=== PATIENT | male | born 1960 | race Caucasian/White ===

== ENCOUNTER 2016-11-07 09:38 | Emergency (ER) | payer OTHER ==
[2016-11-07] MEDS ORDERED: Aspirin Low Dose CHEW TAB* 81 MG PO ONE (09:55)
--- NOTE | 2016-11-07 10:24 | RAD ---
Indication: Chest pain. Single frontal view of the chest performed at 1010 hours was reviewed. No prior study is available for comparison. No mediastinal shift is noted. Heart is of normal size and configuration. Lung dominguez appear clear. IMPRESSION: NO ACTIVE CARDIOPULMONARY DISEASE IS NOTED.
[2016-11-07 10:27] LABS: Hematocrit 40 % (42-52); Hemoglobin 13.1 g/dl (14.0-18.0); Mean Corpuscular HGB Conc 33 g/dl (31-36); Mean Corpuscular Hemoglobin 29 pg (27-31); Mean Corpuscular Volume 88 fL (80-94); Mean Platelet Volume 9 um3 (7.4-10.4); Red Blood Count 4.48 10^6/ul (4.0-5.4); Red Cell Distribution Width 13 % (10.5-15); White Blood Count 6.7 10^3/ul (3.5-10.8)
[2016-11-07 10:41] LABS: Albumin 3.9 g/dL (3.2-5.2); BUN/Creatinine Ratio 12.9 (8-20); Calcium 9.2 mg/dL (8.6-10.3); EGFR African American 107.3 (>60); EGFR Non-African American 83.5 (>60); Potassium 3.9 mmol/L (3.5-5.0); Total Bilirubin 0.4 mg/dL (0.2-1.0); Total Protein 6.9 g/dL (6.4-8.9)
[2016-11-07 11:13] LABS: TSH (Thyroid Stimulating Horm) 1.58 mcIU/mL (0.34-5.60)
[2016-11-07 11:29] LABS: Urine Bilirubin Negative (Negative); Urine Glucose Negative (Negative); Urine Nitrite Negative (Negative)
[2016-11-07 12:37] LABS: Call Hep C TO BE CALLED
--- NOTE | 2016-11-07 12:55 | CONSULT ---
Subjective Date of Service: 11/07/16 Interval History: 56 yo M with hx of HTN, DM, reported CVA and occasional tobacco abuse p/w chest pain. Patient is a prisoner and about 1 hour after 6:30 physical therapy (where patient was doing push-ups, sit-ups, etc) he was in the mess [employer] and developed chest pain in the L side of his chest. He reported some SOB, denies nausea or diaphoresis. The pain did not radiate and he rated it an 8/10 at it's worst. EMS was called and the patient received nitro en route with no change in his symptoms. During evaluation now the patient continues to have chest pain which he states is a 6/10. He states the pain is worse with deep breathing and palpation. He underwent EKG and blood work in the ED and hospitalist service was called to evaluate for admission. Family History: Findings - Mother - DM, blindness, Maternal grandmother - DM, blindness Social History: Findings - Occasional tobacco use, no EtOH or drug use Past Medical History: Findings - HTN, DM, asthma, CVA, glaucoma, HCV, anxiety Review of Systems - Measurements Intake and Output: Intake and Output Last 24 Hours 11/05/16 11/06/16 11/07/16 11/08/16 05:59 05:59 06:59 06:59 Weight 88.451 kg - Review of Systems Constitutional Symptoms: Negative: Fever Dermatology: Positive: Normal HEENT: Positive: Normal Eyes: Positive: Normal Thyroid: Positive: Normal Pulmonary: Positive: Shortness of Breath, Asthma Cardiology: Positive: Chest Pain, Shortness of Breath Gastroenterology: Positive: Normal Genital - Urinary: Positive: Normal Objective Vital Signs 11/07/16 11/07/16 11/07/16 09:42 10:13 10:14 Temperature 98.0 F Pulse Rate 86 81 Respiratory 16 12 Rate Blood Pressure 118/62 100/64 (mmHg) O2 Sat by Pulse 99 98 Oximetry 11/07/16 11/07/16 11/07/16 10:24 11:00 11:30 Temperature Pulse Rate 72 56 Respiratory 12 13 Rate Blood Pressure 108/88 104/65 (mmHg) O2 Sat by Pulse 98 99 98 Oximetry 11/07/16 11/07/16 12:00 12:30 Temperature Pulse Rate 67 66 Respiratory 14 12 Rate Blood Pressure 109/72 118/68 (mmHg) O2 Sat by Pulse 96 98 Oximetry Oxygen Devices in Use Now: None Appearance: Middle-aged, man, laying in bed in NAD Eyes: No Scleral Icterus Ears/Nose/Mouth/Throat: Mucous Membranes Moist Neck: NL Appearance and Movements; NL JVP Respiratory: Symmetrical Chest Expansion and Respiratory Effort, Clear to Auscultation, - - L chest tender to palpation Cardiovascular: NL Sounds; No Murmurs; No JVD, RRR Abdominal: NL Sounds; No Tenderness; No Distention Lymphatic: No Cervical Adenopathy Extremities: No Edema Skin: No Rash or Ulcers Neurological: Alert and Oriented x 3 Result Diagrams: 11/07/16 10:11 11/07/16 10:11 Assessment/Plan - Billing Chest pain in a 56 yo M with hx of HTN, DM, CVA, glaucoma, HCV and anxiety. Seems that etiology of pain is unlikely to be ACS. Pain is reproducible on exam and it did not start during physical exertion but 1 hour afterwards. He has some chronic J point elevations on EKG (old EKG provided in paperwork from detention) and troponin is negative. REGGIE score is 1. Will recommend repeat troponin at 1400 and if negative would discharge on analgesic for MSK pain. If troponin becomes elevated will admit patient for further work-up.
[2016-11-07 14:44] VITALS: BP 123/73
--- NOTE | 2016-11-07 17:57 | ED ---
Jory Ramos Michael, scribed for Steffen Lemons MD on 11/07/16 at 1036 . HPI Chest Pain - HPI Summary HPI Summary: 56 y/o male was BIBA to the ED presenting with constant mid sternal chest pain that started this morning while the pt was at PT doing push-ups. The pt reports that the pain is a 7 out of 10 on a pain severity scale. He notes the CP does not radiate anywhere, and the pain is alleviated with rest. The pt also c/o dizziness and SOB. He denies nausea and vomiting. The PMHx is significant for 2 CVA, HTN, hyperlipidemia, and DM. - History of Current Complaint Chief Complaint: EDChestPainROMI Time Seen by Provider: 11/07/16 09:55 Hx Obtained From: Patient, EMS, Medical Records Onset/Duration: Started Hours Ago, Still Present Timing: Constant Initial Severity: Moderate Current Severity: Moderate Pain Intensity: 7 Pain Scale Used: 0-10 Numeric Chest Pain Location: Mid Sternal Chest Pain Radiates: No Alleviating Factor(s): Rest Associated Signs and Symptoms: Positive: Chest Pain, Dizziness, Shortness of Breath. Negative: Nausea, Vomiting - Allergy/Home Medications Allergies/Adverse Reactions: Allergies Allergy/AdvReac Type Severity Reaction Status Date / Time No Known Allergies Allergy Verified 11/07/16 10:04 Home Medications: Home Medications Albuterol HFA INHALER* [Ventolin HFA Inhaler*] 2 puff INH QID PRN 11/07/16 [ History Confirmed 11/07/16] Brimonidine P 0.1%(NF) [Alphagan P 0.1% (NF)] 1 drop BOTH EYES BID 11/07/16 [ History Confirmed 11/07/16] Fluticasone HFA 110 mcg(NF) [Flovent HFA 110 mcg(NF)] 1 puff INH BID 11/07/16 [ History Confirmed 11/07/16] Lisinopril TAB* [Prinivil TAB 5 MG*] 5 mg PO DAILY 11/07/16 [History Confirmed 11/07/16] Mirtazapine TAB* [Remeron TAB*] 37.5 mg PO BEDTIME 11/07/16 [History Confirmed 11/07/16] metFORMIN* [Glucophage 500 MG TAB *] 500 mg PO BID 11/07/16 [History Confirmed 11/07/16] PMH/Surg Hx/FS Hx/Imm Hx Endocrine/Hematology History: Reports: Hx Diabetes Cardiovascular History: Reports: Hx Hypercholesterolemia, Hx Hypertension Comment Only: Other Cardiovascular Problems/Disorders - 2 PREVIOUS STROKES Neurological History: Reports: Hx CVA Infectious Disease History: No Infectious Disease History: Denies: Traveled Outside the [place] in Last 30 Days - Family History Known Family History: Positive: Unknown - pt does not know FHx - Social History Alcohol Use: None Substance Use Type: Reports: None Smoking Status (MU): Current Every Day Smoker Review of Systems Positive: Chest Pain Positive: Shortness Of Breath Neurological: Other - dizziness All Other Systems Reviewed And Are Negative: Yes Physical Exam - Summary Physical Exam Summary: VITAL SIGNS: Reviewed. GENERAL: Patient is a well developed and nourished male who is lying comfortable in the stretcher. Patient is not in any acute respiratory distress. HEAD AND FACE: No signs of trauma. No ecchymosis, hematomas or skull depressions. No sinus tenderness. EYES: PERRLA, EOMI x 2, No injected conjunctiva, no nystagmus. EARS: Hearing grossly intact. Ear canals and tympanic membranes are within normal limits. MOUTH: Oropharynx within normal limits. NECK: Supple, trachea is midline, no adenopathy, no JVD, no carotid bruit, no c- spine tenderness, neck with full ROM. CHEST: Symmetric, no tenderness at palpation LUNGS: Clear to auscultation bilaterally. No wheezing or crackles. CVS: Regular rate and rhythm, S1 and S2 present, no murmurs or gallops appreciated. ABDOMEN: Soft, non-tender. No signs of distention. No rebound no guarding, and no masses palpated. Bowel sounds are normal. EXTREMITIES: FROM in all major joints, no edema, no cyanosis or clubbing. NEURO: Alert and oriented x 3. No acute neurological deficits. Speech is normal and follows commands. SKIN: Dry and warm Triage Information Reviewed: Yes Vital Signs On Initial Exam: Initial Vitals Temp Pulse Resp BP Pulse Ox 98.0 F 86 16 118/62 99 11/07/16 09:42 11/07/16 09:42 11/07/16 09:42 11/07/16 09:42 11/07/16 09:42 Vital Signs Reviewed: Yes - Gore Coma Scale Coma Scale Total: 15 Diagnostics - Vital Signs Vital Signs Temp Pulse Resp BP Pulse Ox 11/07/16 09:42 98.0 F 86 16 118/62 99 - Laboratory Result Diagrams: 11/07/16 10:11 11/07/16 10:11 Lab Statement: Any lab studies that have been ordered have been reviewed, and results considered in the medical decision making process. - Radiology CXR Xray Interpretation: No Acute Changes Radiology Interpretation Completed By: Radiologist - EKG EK EKG Rhythm: Sinus Rhythm - 75 bpm EKG Interpretation: no st elevation Chest Pain Course/Dx - Course Course Of Treatment: 56 y/o male was BIBA to the ED presenting with constant mid sternal chest pain that started this morning while the pt was at PT doing push-ups. The pt reports that the pain is a 7 out of 10 on a pain severity scale. He notes the CP does not radiate anywhere, and the pain is alleviated with rest. The pt also c/o dizziness and SOB. He denies nausea and vomiting. The PMHx is significant for 2 CVA, HTN, hyperlipidemia, and DM. The blood work was within normal limits except for slight anemia. The first Troponin was 0.00 and the second trop was 0.00 6 hours later. The EKG showed NSR with no st elevatoins. The CXR shows no active cardiopulmonary disease. At this point, because of multiple comorbidities, I discussed the case with Dr. Daily ( Hospitalist) for admission. Dr. Daily saw the patient on exam and does not believe the patient had acute coronary artery syndrome. Therefore, he asked for the 2nd Troponin which was 0.00, so the patient will be discharged home and will follow up with [facility] Physician Referral. He can follow up with Dr. Lange as needed. The patient is hemodynamically stable and alert/oritent x3. I discussed all the findings and test results with the patient. Patient was instructed to return to the emergency room immediately if any of the symptoms return or worsens. Plan of care was discussed with the patient and understands and agrees. All questions were answered at patient satisfaction. There were no further complaints or concerns. Lung exam before discharge: CTA B/L. Good air exchange. No wheezing or crackles heard. CVS: S1 and S2 present. No murmurs appreciated. Patient is alert and oriented x 3. Patient is hemodynamically stable. 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 PHYSICIAN REFERRAL [Outside] Carrington Lange MD [Medical Doctor] - Additional Instructions: You will follow up with [facility] Physician Referral within the next 2 days. Also you can follow up with Dr. Lange only if needed. The documentation as recorded by the Jory farias Michael accurately reflects the service I personally performed and the decisions made by , Steffen Lemons MD.
== END 2016-11-07 14:51 | disposition home or self-care (01) ==
LOC: ED 09:38
DX: R07.89 Other chest pain (principal); R42 Dizziness and giddiness; R06.02 Shortness of breath; F17.210 Nicotine dependence, cigarettes, uncomplicated; Z86.79 Personal history of other diseases of the circulatory system; Z86.39 Personal history of other endocrine, nutritional and metabolic disease
CPT/HCPCS: 36415; 71010; 80053; 81003; 82550; 82553; 83605; 83735; 83880; 84443; 84484; 85025; 86703; 86803; 93005; 99283; A9270-GY